=== PATIENT | female | born 1985 | race Caucasian/White ===

== ENCOUNTER 2022-04-28 15:37 | Emergency (ER) | payer SELFPAY ==
--- NOTE | ~2022-04-28 | CT_ITS ---
Indication: Pain EXAMINATION: CT cervical spine and CT the brain. Axial imaging with coronal and sagittal reformatted images. This CT examination was performed using dose optimization techniques as appropriate, variously including the following: *Automated exposure control *Adjustment of mA and/or kV according to patient size (this includes techniques or standardized protocols for targeted exams where dose is matched to indication/reason for exam; i.e. extremities or head) *Use of iterative reconstruction technique. Radiation dose [address] brain; There is no midline shift. There is no mass effect. There is no hemorrhage. The basal cisterns appear patent. The posterior fossa is grossly within normal limits. There is no extra-axial collection. The rodriguez-white matter appears preserved. The ventricular system is within normal limits. Note is made of some scattered densities within the subcutaneous fat of uncertain etiology. CT cervical spine; There is no acute fracture or dislocation. Some straightening of the normal lordosis may be due to position or spasm. Some early degenerative change at C5-C6. CT/CT head/brain wo IV con IMPRESSION: Negative acute noncontrast CT of the brain. Note is made of some soft tissue lesions in the subcutaneous fat of uncertain etiology. No acute fracture or dislocation the cervical spine.
--- NOTE | ~2022-04-28 | CT_ITS ---
Indication: Pain EXAMINATION: CT cervical spine and CT the brain. Axial imaging with coronal and sagittal reformatted images. This CT examination was performed using dose optimization techniques as appropriate, variously including the following: *Automated exposure control *Adjustment of mA and/or kV according to patient size (this includes techniques or standardized protocols for targeted exams where dose is matched to indication/reason for exam; i.e. extremities or head) *Use of iterative reconstruction technique. Radiation dose [address] brain; There is no midline shift. There is no mass effect. There is no hemorrhage. The basal cisterns appear patent. The posterior fossa is grossly within normal limits. There is no extra-axial collection. The rodriguez-white matter appears preserved. The ventricular system is within normal limits. Note is made of some scattered densities within the subcutaneous fat of uncertain etiology. CT cervical spine; There is no acute fracture or dislocation. Some straightening of the normal lordosis may be due to position or spasm. Some early degenerative change at C5-C6. CT/CT cervical spine wo IV con IMPRESSION: Negative acute noncontrast CT of the brain. Note is made of some soft tissue lesions in the subcutaneous fat of uncertain etiology. No acute fracture or dislocation the cervical spine.
[2022-04-28 16:33] VITALS: BP 141/98; PULSE 78; RESP 18; TEMP 36.8; O2SAT 98; BMI 32.8
[2022-04-28 19:42] VITALS: BP 141/93; PULSE 67; RESP 15; TEMP 36.7; O2SAT 100
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
== END 2022-04-28 21:36 | disposition home or self-care (01) ==
PROVIDERS: Emergency Provider Student in an Organized Health Care Education/Training Program; PCP Nurse Practitioner Family
DX: S06.0X9A Concussion with loss of consciousness of unspecified duration, initial encounter (principal); R51.9 Headache, unspecified; M54.2 Cervicalgia; Y04.2XXA Assault by strike against or bumped into by another person, initial encounter; Y93.9 Activity, unspecified; Y92.9 Unspecified place or not applicable; Y99.9 Unspecified external cause status; Z79.899 Other long term (current) drug therapy
CPT/HCPCS: 70450; 72125; 99282; 99283